=== PATIENT | male | born 1935 | race Caucasian/White ===

== ENCOUNTER → 2017-02-11 | Outpatient (REF) ==
[~2017-02-11] MED LIST: ASPIRIN E.C. 8181 MG PO
[2017-02-12 16:34] LABS: PSA-TOTAL 0.53 ng/mL (0-4); THYROID STIMULATING HORMONE 0.678 uIU/mL (0.465-4.680)
[2017-02-12 17:21] LABS: THYROXINE (T4)-TOTAL 7.4 ug/dL (5.5-11.0)
== END ==
LOC: ZLAB.WCH 18:04
PROVIDERS: Nurse Practitioner Family
DX: Z01.89 Encounter for other specified special examinations (principal)
CPT/HCPCS: G0103

== ENCOUNTER → 2017-07-11 | Outpatient (REF) | LOC: ZLAB.WCH 18:22 | DX: Z01.89 Encounter for other specified special examinations (principal) ==

== ENCOUNTER → 2018-06-20 | Outpatient (REF) | LOC: ZLAB.WCH 13:15 | DX: Z01.89 Encounter for other specified special examinations (principal) ==